=== PATIENT | female | born 1980 | race Caucasian/White ===

== ENCOUNTER 2016-09-21 18:15 | Emergency (ER) | payer MEDICAID, OTHER ==
[~2016-09-21] VITALS: Ht 165.1 cm; Wt 77.6 kg
[2016-09-21 18:16] VITALS: BP 151/85
[2016-09-21] MEDS ORDERED: FAMOTIDINE 20 MG TABLET PO ONE (19:00)
[2016-09-21] MEDS ORDERED: FAMOTIDINE 20 MG TABLET ONE (19:31)
== END 2016-09-21 19:46 | disposition home or self-care (01) ==
LOC: ED 19:40
DX: L24.7 Irritant contact dermatitis due to plants, except food (principal)
CPT/HCPCS: 99284; J7512; Q0177

== ENCOUNTER 2017-02-09 08:22 | Emergency (ER) | payer MEDICAID ==
[~2017-02-09] VITALS: Ht 165.1 cm; Wt 79.5 kg
[2017-02-09] MEDS ORDERED: DIAZEPAM 5 MG/ML, 2ML IVPush ONE (09:00)
[2017-02-09] MEDS ORDERED: ONDANSETRON 2MG/ML, 2ML IVPush ONE (09:00)
[2017-02-09] MEDS ORDERED: MORPHINE SULFATE 4 MG/ML, 1ML IVPush PRN (09:00)
[2017-02-09] MEDS ORDERED: SODIUM CHLORIDE FLUSH 10ML SYR IVF ONE (09:00)
[2017-02-09] MEDS ORDERED: ONDANSETRON 2MG/ML, 2ML ONE (09:50)
[2017-02-09] MEDS ORDERED: MORPHINE SULFATE 4 MG/ML, 1ML ONE (09:50)
[2017-02-09 09:55] LABS: HEMATOCRIT 39.7 % (34.6-47.8); HEMOGLOBIN 13.4 g/dL (11.7-16.4); WHITE BLOOD COUNT 12.4 x10^3/uL (3.4-10)
[2017-02-09 10:01] LABS: BLOOD UREA NITROGEN 13 mg/dL (7-18)
[2017-02-09 11:21] VITALS: BP 110/68
== END 2017-02-09 12:10 | disposition home or self-care (01) ==
LOC: ED 09:03
DX: S39.012A Strain of muscle, fascia and tendon of lower back, initial encounter (principal); X50.1XXA Overexertion from prolonged static or awkward postures, initial encounter; Y93.89 Activity, other specified; Y92.89 Other specified places as the place of occurrence of the external cause; Y99.8 Other external cause status
CPT/HCPCS: 36415; 80048; 81003; 82040; 84703; 85025; 96374; 96375; 99284; J2405; J3360

== ENCOUNTER 2017-05-03 17:16 | Emergency (ER) | payer MEDICAID ==
[~2017-05-03] VITALS: Ht 165.1 cm; Wt 80.3 kg
[2017-05-03 18:01] VITALS: BP 142/88
== END 2017-05-03 18:50 ==
LOC: ED 18:44
DX: M79.641 Pain in right hand (principal); Z53.21 Procedure and treatment not carried out due to patient leaving prior to being seen by health care provider

== ENCOUNTER 2017-10-18 06:58 | Emergency (ER) | payer MEDICAID ==
[~2017-10-18] VITALS: Ht 165.1 cm; Wt 76.2 kg
[2017-10-18] MEDS ORDERED: ONDANSETRON ODT 4 MG PO ONE (08:30)
[2017-10-18] MEDS ORDERED: HYDROcodone/APAP 7.5-325MG/15ML UDC PO PRN (08:30)
[2017-10-18] MEDS ORDERED: ONDANSETRON ODT 4 MG ONE (09:15)
[2017-10-18] MEDS ORDERED: HYDROcodone/APAP 7.5-325MG/15ML UDC ONE (09:15)
[2017-10-18] MEDS ORDERED: SODIUM CHLORIDE 0.9% 1,000ML IVBOLUS ONE (09:30)
[2017-10-18] MEDS ORDERED: SODIUM CHLORIDE FLUSH 10ML SYR IVF ONE (09:30)
[2017-10-18] MEDS ORDERED: KETOROLAC 30 MG/1 ML ONE (10:09)
[2017-10-18 10:17] LABS: MICROSCOPIC NOT IND
[2017-10-18 10:18] LABS: CULTURE INDICATED? NO
[2017-10-18] MEDS ORDERED: KETOROLAC 30 MG/1 ML IVPush ONE (10:30)
[2017-10-18 10:53] VITALS: BP 123/68
[2017-10-18 12:41] LABS: HCG UR SG 1.024 (1.003-1.030)
== END 2017-10-18 11:01 | disposition home or self-care (01) ==
LOC: ED 10:55
DX: S39.012A Strain of muscle, fascia and tendon of lower back, initial encounter (principal); R11.14 Bilious vomiting; K29.00 Acute gastritis without bleeding; J02.9 Acute pharyngitis, unspecified; X58.XXXA Exposure to other specified factors, initial encounter; Y93.89 Activity, other specified; Y92.89 Other specified places as the place of occurrence of the external cause; Y99.8 Other external cause status
CPT/HCPCS: 81003; 81025; 87081; 87880; 96361; 96374; 99285; J1885; J7030; Q0162; 87147

== ENCOUNTER 2018-09-22 08:28 | Emergency (ER) | payer MEDICAID ==
[~2018-09-22] VITALS: Ht 165.1 cm; Wt 74.8 kg
[2018-09-22 08:37] VITALS: BP 96/48
== END 2018-09-22 09:07 | disposition left against medical advice (07) ==
LOC: ED 09:00
DX: M79.645 Pain in left finger(s) (principal); Z53.21 Procedure and treatment not carried out due to patient leaving prior to being seen by health care provider

== ENCOUNTER 2018-09-22 09:31 | Emergency (ER) | payer MEDICAID ==
[~2018-09-22] VITALS: Ht 165.1 cm; Wt 74.8 kg
[2018-09-22 09:42] VITALS: BP 114/63
[2018-09-22] MEDS ORDERED: BACITRACIN ZINC OINT 500U/GM, 0.9 GM ONE (10:06)
--- NOTE | 2018-09-22 10:28 | NUR ---
Patient/Caregiver given discharge instructions and they have confirmed that they understand the instructions. Patient ambulatory with steady gait.
== END 2018-09-22 10:32 | disposition home or self-care (01) ==
LOC: ED 10:26
DX: L03.115 Cellulitis of right lower limb (principal); L03.114 Cellulitis of left upper limb; L03.012 Cellulitis of left finger
CPT/HCPCS: 99283

== ENCOUNTER 2019-09-09 14:19 | Emergency (ER) | payer SELFPAY ==
[~2019-09-09] VITALS: Ht 165.1 cm; Wt 81.0 kg
[2019-09-09 14:21] VITALS: BP 120/58
--- NOTE | 2019-09-09 14:26 | NUR ---
zane. report received from [facility]. pt climbed on the fence and lac on left knee(about 5cm). bleeding controlled. denies any other sx. pt's aox4. resps even and unlabored. bp/spo2 monitors in place. call light within reach. 100 fentanyl and 4 zofran given bellman captain. edmd at bedside to evaluate at this time.
[2019-09-09] MEDS ORDERED: LIDOCAINE 1%-EPI 1:100K, 20ML INFIL ONE (14:30)
[2019-09-09] MEDS ORDERED: DIPH,PERTUSS(ACELL),TET VAC/PF 0.5 ML IM-VACC ONE ×2 (14:30)
[2019-09-09] MEDS ORDERED: LIDOCAINE 1%-EPI 1:100K, 20ML ONE (14:30)
--- NOTE | 2019-09-09 14:36 | NUR ---
tdap given at this time. pt tolerated well.
[2019-09-09] MEDS ORDERED: NEOSPORIN OINT. PKT 1 PACKET ONE (15:24)
== END 2019-09-09 15:56 | disposition home or self-care (01) ==
LOC: ED 15:30
DX: S81.012A Laceration without foreign body, left knee, initial encounter (principal); W26.8XXA Contact with other sharp object(s), not elsewhere classified, initial encounter; Y93.89 Activity, other specified; Y92.488 Other paved roadways as the place of occurrence of the external cause; Y99.8 Other external cause status
CPT/HCPCS: 12032; 90471; 90715; 99284

== ENCOUNTER 2019-09-19 07:56 | Emergency (ER) | payer SELFPAY ==
[~2019-09-19] VITALS: Ht 162.6 cm; Wt 78.5 kg
[2019-09-19 08:04] VITALS: BP 141/86
--- NOTE | 2019-09-19 08:55 | NUR ---
PT LEFT WITHOUT DC PAPER. PA EXPLAINED DC INSTRUCTIONS AFTER STURE REMOVED.
== END 2019-09-19 09:01 | disposition home or self-care (01) ==
LOC: ED 08:45
DX: S71.111D Laceration without foreign body, right thigh, subsequent encounter (principal); X58.XXXD Exposure to other specified factors, subsequent encounter
CPT/HCPCS: 99281

== ENCOUNTER 2019-10-01 09:29 | Emergency (ER) | payer OTHER ==
[~2019-10-01] VITALS: Ht 162.6 cm; Wt 77.0 kg
[2019-10-01 09:33] VITALS: BP 153/83
== END 2019-10-01 10:19 | disposition home or self-care (01) ==
LOC: ED 10:15
DX: S81.012D Laceration without foreign body, left knee, subsequent encounter (principal); L03.116 Cellulitis of left lower limb; X58.XXXD Exposure to other specified factors, subsequent encounter
CPT/HCPCS: 99283

== ENCOUNTER 2020-06-11 17:16 | Emergency (ER) | payer MEDICAID ==
[~2020-06-11] VITALS: Ht 165.1 cm; Wt 71.4 kg
--- NOTE | 2020-06-11 17:35 | NUR ---
Pt changed into gown and placed on bedside monitor. BP cuff with air leak and manual BP required. Pt with sudden jerky movements of her body, denies ETOH or substance use, and states she has been feeling ill for the last 9 days with muscle aches, MICHAELS, and abd pain with N/V x 2 days now. Denies blood in emesis, describes emesis as bile-like and states she still has her gallbladder. Awaiting MD for exam and orders.
[2020-06-11] MEDS ORDERED: SODIUM CHLORIDE 0.9% 1,000ML IVBOLUS ONE (18:30)
[2020-06-11] MEDS ORDERED: ONDANSETRON 2MG/ML, 2ML IVPush ONE (18:30)
[2020-06-11] MEDS ORDERED: KETOROLAC 30 MG/1 ML IVPush ONE (18:30)
[2020-06-11 18:54] LABS: BASOPHILS % (AUTO) 1 % (0-1); EOSINOPHILS % (AUTO) 2 % (1-7); LYMPHOCYTES % (AUTO) 32 % (22-44); MEAN CORPUSCULAR HEMOGLOBIN 28.9 pg (27.0-34.8); MEAN CORPUSCULAR HGB CONC 33.2 g/dL (32.4-35.8); MONOCYTES % (AUTO) 10 % (2-9); NEUTROPHILS % (AUTO) 55 % (42-75); PLATELET COUNT 147 x10^3/uL (130-400); RED BLOOD COUNT 4.36 x10^6/uL (3.82-5.3); RED CELL DISTRIBUTION WIDTH 13.8 % (9.6-15.2)
--- NOTE | 2020-06-11 18:55 | NUR ---
IV started and NS liter bolus started. asphalt roller person RN present for report. Report given to MELBA Hinojosa and care transferred. RN aware of pending Toradol and Zofran meds to be given and that pt would like more blankets.
[2020-06-11 18:56] LABS: MD NO
[2020-06-11] MEDS ORDERED: KETOROLAC 30 MG/1 ML ONE (19:00)
[2020-06-11] MEDS ORDERED: ONDANSETRON 2MG/ML, 2ML ONE (19:00)
[2020-06-11 19:02] LABS: ALBUMIN 2.8 g/dL (3.4-5.0); ANION GAP 8 mmol/L (5-15); CALCIUM 8.1 mg/dL (8.5-10.1); CHLORIDE 105 mmol/L (98-107); CREATININE 0.81 mg/dL (0.55-1.02)
--- NOTE | 2020-06-11 19:10 | NUR ---
1ST CONTACT C PT. ON CART, DRY HEAVING, MEDS PER JUN. WILL CTM. CXR COMPLETED. CALL LIGHT IN REACH.
[2020-06-11 19:12] LABS: ALANINE AMINOTRANSFERASE 2225 U/L (12-78); ALKALINE PHOSPHATASE 163 U/L (45-117); BILIRUBIN,TOTAL 2.4 mg/dL (0.2-1.0); TOTAL PROTEIN 6.6 g/dL (6.4-8.2)
--- NOTE | 2020-06-11 20:24 | NUR ---
PT ASLEEP ON CART. STATES MILD RELIEF FROM PAIN. NSB COMPLETE. AWARE OF PLAN FOR U/S. REQUESTING WATER. MADE AWARE OF NPO STATUS UNTIL ALL TESTS ARE BACK.
[2020-06-11 22:37] LABS: AMPHETAMINE SCREEN, URINE Positive (Negative); BARBITURATE SCREEN, URINE Negative (Negative); BENZODIAZEPINE SCREEN, URINE Negative (Negative); CANNABINOID SCREEN, URINE Positive (Negative); COCAINE SCREEN, URINE Negative (Negative); METHADONE SCREEN, URINE Negative (Negative); OPIATE SCREEN, URINE Negative (Negative)
[2020-06-11 22:55] LABS: MICROSCOPIC INDICATED
[2020-06-12 00:05] VITALS: BP 132/74
--- NOTE | 2020-06-12 00:06 | NUR ---
Patient given discharge instructions and they have confirmed that they understand the instructions. Patient ambulatory with steady gait.
== END 2020-06-12 00:14 | disposition home or self-care (01) ==
LOC: ED 19:30
DX: B15.9 Hepatitis A without hepatic coma (principal); R11.2 Nausea with vomiting, unspecified; R50.9 Fever, unspecified; M79.10 Myalgia, unspecified site; F17.210 Nicotine dependence, cigarettes, uncomplicated
CPT/HCPCS: 36415; 71045; 76700; 80053; 80074; 80307; 81001; 82728; 83605; 83615; 83690; 85025; 87086; 87147; 96361; 96374; 96375; 99285; 99406; J1885; J2405; J7030

== ENCOUNTER 2020-08-21 15:27 | Emergency (ER) | payer MEDICAID ==
[~2020-08-21] VITALS: Ht 165.1 cm; Wt 72.4 kg
[2020-08-21 15:31] VITALS: BP 153/101
[2020-08-21] MEDS ORDERED: DIPH,PERTUSS(ACELL),TET VAC/PF 0.5 ML IM-VACC ONE ×2 (16:00→16:10)
[2020-08-21] MEDS ORDERED: HYDROcodone/APAP 5/325 TABLET PO ONE (16:00)
[2020-08-21] MEDS ORDERED: LIDOCAINE 1%, 10ML INFIL ONE (16:00)
[2020-08-21] MEDS ORDERED: HYDROcodone/APAP 5/325 TABLET ONE (16:10)
[2020-08-21] MEDS ORDERED: KETOROLAC 30 MG/1 ML IM ONE (18:30)
[2020-08-21] MEDS ORDERED: KETOROLAC 30 MG/1 ML ONE (18:30)
== END 2020-08-21 18:44 | disposition home or self-care (01) ==
LOC: ED 16:03
DX: S31.821A Laceration without foreign body of left buttock, initial encounter (principal); S30.870A Other superficial bite of lower back and pelvis, initial encounter; S70.271A Other superficial bite of hip, right hip, initial encounter; S60.477A Other superficial bite of left little finger, initial encounter; S60.473A Other superficial bite of left middle finger, initial encounter; S60.475A Other superficial bite of left ring finger, initial encounter; W54.0XXA Bitten by dog, initial encounter; Y93.89 Activity, other specified; Y92.89 Other specified places as the place of occurrence of the external cause; Y99.8 Other external cause status
CPT/HCPCS: 12031; 73130; 90471; 90715; 96372; 99284; J1885